=== PATIENT | female | born 1985 | race African-American/Black ===

== ENCOUNTER 2017-04-18 07:09 | Emergency (ER) | payer BC ==
[~2017-04-18] VITALS: Ht 167.6 cm; Wt 89.3 kg
--- NOTE | ~2017-04-18 | CT71 ---
[facility] A Service of [facility] & [facility] RADIOLOGY TEXT RESULTS PATIENT: FATUMA PEÑA LOCATION: [facility] : 81 UNIT #: [id number] AGE: [address]: Martha Valente APRN SEX: F ORDER DR: [id number] [facility] [address] [place], [place] [address] [id number] E MR#: [id number] Acc #: [id number] NAME: FATUMA PEÑA : 1985 SEX: F STUDY DATE/TIME: 04/18/2017 10:12 UNIT: [facility] ROOM: STUDY DESCRIPTION: CT Head Wo Contrast Attending Physician: Martha Valente A.P.R.N. Ordering Physician: Ed Gentry Beck M.D. Primary Care Physician: No Primary Care Physician MEDICAL IMAGING REPORT This report is preliminary unless electronic signature is present EXAM CT scan of the brain without contrast. INDICATIONS Generalized headaches since April 16, 2017. FINDINGS Axial noncontrast images were obtained from the skull base to the vertex. This CT exam was performed with one or more of the following radiation dose reduction techniques: automatic exposure control, adjustment of mA and/or kV according to patient size, and iterative reconstruction. Ventricular size and configuration are normal. There is no evidence of acute infarct or hemorrhage. There are no extra-axial fluid collections. No mass lesion or mass effect is seen. There are no skull fractures. IMPRESSION Normal noncontrast head CT. Dictated by... Shar King M.D. THIS IS AN ELECTRONICALLY VERIFIED REPORT Shar King M.D. at 04/18/2017 3:17 PM FEL/bry TD: 04/18/2017 14:03 JOB #: [id number] MEDICAL IMAGING REPORT Page 1 of 1 COPY
[~2017-04-18 07:09] MED LIST: PRENATAL MULITV1 TAB PO; VIBRAMYCIN100 M1 PO; VICODIN 5/500 T1 TAB PO; ZOFRAN PO
[2017-04-18 08:19] LABS: BASOPHIL% 0.3 % (0-2.5); EOSINOPHIL% 0.1 % (0.0-7.0); HEMOGLOBIN 10.6 gm/dL (12.0-16.0); LYMPHOCYTE# 0.7 X10e3 (1.0-3.5); LYMPHOCYTE% 11.7 % (17.0-45.0); MEAN CELL VOLUME 81.2 FL (83-96); MEAN CORPUSCULAR HEMOGLOBIN 26.9 PG (28-34); MEAN CORPUSCULAR HGB CONC 33.1 g/dL (30-36); MEAN PLATELET VOLUME 8.5 FL (6.5-11.5); MONOCYTE# 0.6 X10e3 (0-1.0); MONOCYTE% 8.9 % (3.0-12.0); NEUTROPHIL# 4.9 X10e3 (1.5-7.1); PLATELET COUNT 197 X10e3 (140-420); RED BLOOD COUNT 3.94 X10e (3.90-5.30); WHITE BLOOD COUNT 6.3 X10e3 (4.0-10.5)
[2017-04-18 08:20] LABS: DIFF IND NO
[2017-04-18 08:41] LABS: ALBUMIN SERUM 3.7 g/dL (3.5-5.0); BILIRUBIN,TOTAL 0.8 mg/dL (0.2-2.0); BUN/CREATININE RATIO 11.25; CALCIUM SERUM 9.1 mg/dL (8.4-10.2); CREATININE SERUM 0.8 mg/dL (0.6-1.4); GLOM FILT RATE Estimated 112.4 mL/min (>60); POTASSIUM 3.4 mmol/L (3.5-5.1); PROTEIN TOTAL SERUM 8.2 g/dL (6.0-8.3)
== END 2017-04-18 11:02 | disposition home or self-care (01) ==
LOC: CED 07:09
PROVIDERS: Nurse Practitioner
DX: R51 Headache (principal); Z91.040 Latex allergy status
CPT/HCPCS: 70450; 80053; 84703; 85025; 96361; 96374; 96375; 99284; J1200; J1885; J2765

== ENCOUNTER 2017-04-19 09:29 | Emergency (ER) | payer BC | END 2017-04-19 13:10 | disposition home or self-care (01) | LOC: CED 09:29 | DX: R51 Headache (principal); R11.2 Nausea with vomiting, unspecified; Z91.040 Latex allergy status | CPT/HCPCS: 96372; 99284; J1200; J1885; J2765 ==